=== PATIENT | male | born 1945 | race Caucasian/White ===

== ENCOUNTER 2024-09-13 09:29 | Outpatient (REF) | payer SELFPAY ==
[2024-09-13 10:51] LABS: MANUAL DIFF FLAG NO
[2024-09-13 11:01] LABS: Basophils Percent Auto 0.4 % (0-2); Eosinophils Absolute Auto 0.1 X10*3/uL (0.0-0.4); Eosinophils Percent Auto 1.2 % (0-4); Hematocrit 44.4 % (42.0-52.0); Hemoglobin 14.9 g/dl (14.0-18.0); Imm Gran Abs Auto 0.02 X10*3/uL (0.00-0.03); Imm Gran Pct Auto 0.3 % (0.0-0.4); Lymphocytes Absolute Auto 1.8 X10*3/uL (1.2-4.9); Lymphocytes Percent Auto 24.3 % (20-40); Mean Corpuscular HGB Conc 33.6 g/dl (31.0-36.0); Mean Corpuscular Volume 92.5 fL (80.0-98.0); Mean Platelet Volume 9.4 fL (9.4-12.4); Monocytes Absolute Auto 0.6 X10*3/uL (0.1-1.2); Monocytes Percent Auto 8.3 % (2-11); Neutrophils Absolute Auto 4.8 x10*3/uL (2.0-8.3); Neutrophils Percent Auto 65.5 % (45-73); Platelet Count 277 X10*3/uL (160-400); Red Cell Distribution Width 11.9 % (11.0-16.0); White Blood Count 7.3 X10*3/uL (4.8-10.8)
[2024-09-13 11:12] LABS: Alanine Aminotransferase 30 U/L (0-40); Albumin Level 4.2 g/dL (3.5-5.0); Alkaline Phosphatase 88 U/L (39-117); Aspartate Amino Transferase 20 U/L (5-37); Bilirubin Direct 0.1 mg/dL (0.0-0.5); Bilirubin Total 0.4 mg/dL (0.0-1.0); Blood Urea Nitrogen 32 mg/dL (9-16); Estimated Glomerular Filt Rate 48; Lipase 28 U/L (8-78); Total Protein 6.9 g/dL (6.5-8.0)
--- OUTSIDE RECORDS SUMMARY | 2024-09-19 17:11 | XMS_ITS | Continuity of Care Document ---
Author Organization [facility] Address [address] [place] [address]- Support Name Relationship Address Phone SABAS, RAHEEM Personal Relationship Unknown Unava ilable SABAS, MAURI child Unknown Unavailable SABAS, JIMMIE Personal Relationship Unknown Unavai lable SABAS, JIMMIE Personal Relationship Unknown Unavai lable SAABS, RAHEEM Personal Relationship Unknown Unava ilable SABAS, JIMMIE Personal Relationship Unknown Unavai lable SABAS, RAHEEM Personal Relationship Unknown Unava ilable SABAS, JIMMIE Personal Relationship Unknown Unavai lable SABAS, JIMMIE spouse Unknown Unavailable SABAS, RAHEEM Personal Relationship Unknown Unava ilable SABAS, JIMMIE Personal Relationship Unknown Unavai lable SABAS, RAHEEM Personal Relationship Unknown Unava ilable SABAS, RAHEEM Personal Relationship Unknown Unava ilable SABAS, RAHEEM Personal Relationship Unknown Unava ilable SABAS, JIMMIE Personal Relationship Unknown Unavai lable SABAS, RAHEEM Personal Relationship Unknown Unava ilable SABAS, RAHEEM Personal Relationship Unknown Unava ilable SABAS, JIMMIE Personal Relationship Unknown Unavai lable SABAS, RAHEEM Personal Relationship Unknown Unava ilable Care Team Providers Care Learning Officer Name Role Phone Dc Viramontes DO Primary Care Physician [place] [facility] [place] 09/17/24 [facility] [address] [place] [id number] Attending Physician: Traci Barrios MD Admitting Physician: Traci Barrios MD Referring Physician: Dc Viramontes DO Encounter Type: Pre-OutPatient One Time Allergies, Adverse Reactions, Alerts No Known Allergies Immunizations Given and Recorded Vaccine Date Status Refusal Reason influenza virus vaccine, inactivated 08/24/22 Jordin rded SARS-CoV-2 mRNA ([id number]) vax 02/05/22 Recorded SARS-CoV-2 (COVID-19) mRNA BNT-162b2 vac 09/11/21 Recorded SARS-CoV-2 (COVID-19) mRNA BNT-162b2 vac 12/31/20 Recorded tetanus-diphtheria toxoids (Td) 12/15/99 Given Medications amLODIPine 5 mg oral tablet 5 mg, 1, tablet, By Mouth, Daily, # 90 tablet, Refills 0, Maintenance, 02/10/23 9:45:00 PM EDT, Partial fill upon patient request if the prescription is for a schedule II opioid drug. Start Date: 02/10/23 Status: Ordered Quantity: 90.0 Unit: tablet Repeat number: 1 arformoterol 15 mcg/2 mL inhalation solution 1 each, Neb, 2 times a day, ICD10: J45.90, # 360 mL, 3 Refills, Maintenance, 02/02/24 12:36:00 PM EDT, Solution, [facility], Partial fill upon patient request if the prescription is for a schedule II opioid drug., 1 each Neb 2 times a day,Instr:ICD10: J45.90, 168, cm, 12/03/23 8:25:00 EST, Height, 75.3, kg, 11/21/23 3:17:00 EST, Dry Weight Start Date: 02/02/24 Status: Ordered Quantity: 360.0 Unit: mL Repeat number: 4 atorvastatin 10 mg oral tablet 1 tablet = 10 mg, By Mouth, Daily, # 90 tablet, 0 Refills, Maintenance, 02/10/23 9:27:00 PM EDT, Partial fill upon patient request if the prescription is for a schedule II opioid drug. Start Date: 02/10/23 Status: Ordered Quantity: 90.0 Unit: tablet Repeat number: 1 budesonide 0.5 mg/2 mL inhalation suspension 0.5 mg, 2, mL, Neb, 2 times a day, ICD10: J45.40, # 360 mL, Refills 3, Tot. Refills 3, Maintenance,02/02/24 12:35:00 PM EDT, Suspension, Route to Pharmacy Electronically, NCPDP_[id number], [facility], 168, cm, 12/03/23 8:25:00 EST, Height, 75.3, kg, 11/21/23 3:17:00 EST, Dry Weight Start Date: 02/02/24 Status: Ordered Quantity: 360.0 Unit: mL Repeat number: 4 carvedilol 3.125 mg oral tablet 3.125 mg, 1, tablet, By Mouth, 2 times a day, Refills 0, Maintenance, 08/28/24 8:59:00 AM EST, Partial fill upon patient request if the prescription is for a schedule II opioid drug. Start Date: 08/28/24 Status: Ordered Repeat number: 1 Entresto 97 mg-103 mg oral tablet 1 tablet, By Mouth, 2 times a day, 0 Refills, Maintenance, 08/28/24 8:59:00 AM EST, Partial fill upon patient request if the prescription is for a schedule II opioid drug. Start Date: 08/28/24 Status: Ordered Repeat number: 1 Farxiga 10 mg oral tablet 1 tablet = 10 mg, By Mouth, Daily, 0 Refills, Maintenance, 08/28/24 9:00:00 AM EST, Partial fill upon patient request if the prescription is for a schedule II opioid drug. Start Date: 08/28/24 Status: Ordered Repeat number: 1 Flonase Allergy Relief 50 mcg/inh nasal spray 2 sprays = 100 mcg, Nares, Both, 2 times a day, PRN Cough and Congestion, # 16 Gm, 11 Refills, Maintenance, 12/03/23 8:57:00 AM EST, [facility]/pharmacy #[id number], Partial fill upon patient request if the prescription is for a schedule II opioid drug., 168, cm, 12/03/23 8:25:00 EST, Height, 75.3, kg, 11/21/23 3:17:00 EST, Dry Weight Start Date: 12/03/23 Status: Ordered Quantity: 16.0 Unit: g Repeat number: 12 Hydrochlorothiazide By Mouth, Daily, 0 Refills, Maintenance, 12/03/23 8:32:00 AM EST, Partial fill upon patient request if the prescription is for a schedule II opioid drug. Start Date: 12/03/23 Status: Ordered Repeat number: 1 hydrochlorothiazide-lisinopril 12.5 mg-20 mg oral tablet 1 tablet, By Mouth, Daily, # 90 tablet, 0 Refills, Maintenance, 02/10/23 9:42:00 PM EDT, Tablet, Partial fill upon patient request if the prescription is for a schedule II opioid drug. Start Date: 02/10/23 Status: Ordered Quantity: 90.0 Unit: tablet Repeat number: 1 loratadine 10 mg oral tablet 10 mg, 1, tablet, By Mouth, Daily, # 30 tablet, Refills 11, Tot. Refills 11, Maintenance, 12/03/23 8:57:00 AM EST, Route to Pharmacy Electronically, [facility]/pharmacy #[id number], Partial fill upon patient request if the prescription is for a schedule II opioid drug., 168, cm, 12/03/23 8:25:00 EST, Height, 75.3, kg, 11/21/23 3:17:00 EST, Dry Weight Start Date: 12/03/23 Status: Ordered Quantity: 30.0 Unit: tablet Repeat number: 12 Nebulizer/Compressor See Instructions, # 1 each, Refills 11, Tot. Refills 11, Maintenance, E0570 Nebulizer A7003 Neb Disp Set A7014 Neb non-Disp Filter A7005 Neb Non-Disp set A7015 Aerosol Mask A7013 Neb Disp Filter length of need lifetime 99 months for home use, 12/17/23 1:12:00 PM EST, Supply Start Date: 12/17/23 Status: Ordered Quantity: 1.0 Unit: each Repeat number: 12 omeprazole 20 mg oral delayed release tablet 1 tablet = 20 mg, By Mouth, Daily, # 90 tablet, 0 Refills, Maintenance, 02/10/23 9:46:00 PM EDT, CR Tablet, Partial fill upon patient request if the prescription is for a schedule II opioid drug. Start Date: 02/10/23 Status: Ordered Quantity: 90.0 Unit: tablet Repeat number: 1 [place] = 450 mg, By Mouth, 0 Refills, Maintenance, 08/28/24 9:02:00 AM EST, Partial fill upon patient request if the prescription is for a schedule II opioid drug. Start Date: 08/28/24 Status: Ordered Repeat number: 1 tamsulosin 0.4 mg oral capsule Refills 0, Maintenance, 02/10/23 9:27:00 PM EDT, Partial fill upon patient request if the prescription is for a schedule II opioid drug. Start Date: 02/10/23 Status: Ordered Repeat number: 1 traZODone 50 mg oral tablet 25 mg, 0.5, tablet, By Mouth, Daily at bedtime, Can increase to 1 tablet after 3 days if needed, # 15 tablet, Refills 3, Maintenance, 02/10/23 9:27:00 PM EDT, Partial fill upon patient request if the prescription is for a schedule II opioid drug. Start Date: 02/10/23 Status: Ordered Quantity: 15.0 Unit: tablet Repeat number: 1 zafirlukast 20 mg oral tablet 1 tablet = 20 mg, By Mouth, 2 times a day, 1 hour before or 2 hours after meals, # 60 tablet, 11 Refills, Maintenance, 12/31/23 4:44:00 PM EDT, Tablet, [facility]/pharmacy #[id number], Partial fill upon patient request if the prescription is for a schedule II opioid drug., 168, cm, 12/03/23 8:25:00 EST, Height, 75.3, kg, 11/21/23 3:17:00 EST, Dry Weight Start Date: 12/31/23 Status: Ordered Quantity: 60.0 Unit: tablet Repeat number: 12 Problem List Condition Confirmation Course Effective Dates Status Health Status Informant Hypercholesterolemia Confirmed Active Syncope Confirmed Active URI (upper respiratory infection) Confirmed Active Social History Social History Type Response Smoking Status Never smoker entered on: 12/21/14 Sex Sex Representation Male (finding) Patient Care team information Care Team Personnel Name: Dc Viramontes DO Position: S Outreach Member Role: PCP Address: [address] [place], [place] [id number] [address] Telecom: Care Team Related Persons Name: MAURI OBREGON Name: JIMMIE OBREGON Insurance Providers Guarantor name: RAHEEM OBREGON Health Plan Information #: 2 Payer: MEDEX Member Number: [id number] Policy Number: NA Group Number: NA Health Plan Information #: 1 Payer: MEDICARE PART B OUTPT Member Number: [id number] Policy Number: NA Group Number: NA
--- OUTSIDE RECORDS SUMMARY | 2024-09-19 17:11 | XMS_ITS ---
Author Organization [facility] Address [address] [place] [address] Care Team Providers Care Co Founder And Cto Name Role Phone Wander MIRAMONTES, Dc Primary Care Provider Juan C Dexter Jr, Tom Sethi REASON FOR VISIT appt Encounters Encounter Location Date Provider Diagnosis [facility] [address] [place] [address] 09/11/2024 Tom Dexter Jr PLAN OF TREATMENT Next Appt Details Provider Name:Tom toledo Jr, 12/27/2024 11:00:00 AM, [address], [address], [place], [address],
--- OUTSIDE RECORDS SUMMARY | 2024-09-19 17:11 | XMS_ITS ---
Author Organization [facility] Address [address] [place] [address] Care Team Providers Care Home Office Representative Name Role Phone Wander MIRAMONTES, Dc Primary Care Provider Juan C Dexter Jr, Tom Sethi REASON FOR VISIT labs Encounters Encounter Location Date Provider Diagnosis [facility] [address] [place] [address] 09/14/2024 Tom Dexter Jr PLAN OF TREATMENT Next Appt Details Provider Name:Tom toledo Jr, 12/27/2024 11:00:00 AM, [address], [address], [place], [address],
--- OUTSIDE RECORDS SUMMARY | 2024-09-19 17:11 | XMS_ITS | Continuity of Care Document ---
Author Organization [facility] ter Address [address] [place] [address]- Support Name Relationship Address Phone SABAS, RAHEEM [...] Unknown Unava ilable Care Team Providers Care Lean Manufacturing Coordinator Name Role Phone Dc Viramontes DO Primary Care Physician Encounter 08/29/24 - 08/30/[address] [address] Attending Physician: Not on Staff, Attending MD Referring Physician: Not on Staff, Referring MD Encounter Type: [facility] Allergies, Adverse Reactions, Alerts No Known Allergies Immunizations Given and Recorded Vaccine Date Status Refusal Reason influenza virus vaccine, inactivated 08/24/22 Jordin rded SARS-CoV-2 mRNA ([id number]) vax 02/05/22 Recorded SARS-CoV-2 (COVID-19) mRNA BNT-162b2 [...] Refills, Maintenance, 02/02/24 12:36:00 PM EDT, Solution, [facility], Partial fill upon patient request if [...] PM EDT, Suspension, Route to Pharmacy Electronically, NCPDP_[id number], [facility], 168, cm, 12/03/23 8:25:00 EST, Height, [...] 11 Refills, Maintenance, 12/03/23 8:57:00 AM EST, [facility]/pharmacy #[id number], Partial fill upon patient request if [...] Quantity: 90.0 Unit: tablet Repeat number: 1 ipratropium nasal 21 mcg/inh spray 2 sprays = 42 mcg, Nares, Both, 2 times a day, PRN Nasal Congestion, # 30 mL, 11 Refills, Acute 09/03/24 10:45:00 AM EST, 08/28/24 9:32:00 AM EST, [place], Partial fill upon patient request if the prescription is for a schedule II opioid drug., 2 sprays Nares, Both 2 times a day,PRN:Nasal Congestion, 168, cm, 08/28/24 8:54:00 EST, Height, 75.3, kg, 11/21/23 3:17:00 EST,Dry Weight Start Date: 08/28/24 Stop Date: 09/03/24 Status: Ordered Quantity: 30.0 Unit: mL Repeat number: 12 loratadine 10 mg oral tablet 10 mg, 1, tablet, By Mouth, Daily, # 30 tablet, Refills 11, Tot. Refills 11, Maintenance, 12/03/23 8:57:00 AM EST, Route to Pharmacy Electronically, [facility]/pharmacy #[id number], Partial fill upon patient request if [...] Quantity: 90.0 Unit: tablet Repeat number: 1 Amos Jonesetto = 450 mg, By Mouth, 0 Refills, [...] Refills, Maintenance, 12/31/23 4:44:00 PM EDT, Tablet, [facility]/pharmacy #[id number], Partial fill upon patient request if [...] Position: S Outreach Member Role: PCP Address: [address] [place], [place] [address] [place] [address]- Telecom: Care Team Related Persons Name: MAURI OBREGON Name: JIMMIE OBREGON Insurance Providers Guarantor name: RAHEEM OBREGON Health Plan Information #: 1 Payer: MEDICARE PART B OUTPT Member Number: NA Policy Number: NA Group Number: NA Health Plan Information #: 2 Payer: MEDEX Member Number: NA Policy Number: NA Group Number: NA
--- OUTSIDE RECORDS SUMMARY | 2024-09-19 17:11 | XMS_ITS | Patient Health Record ---
Author Organization [facility] Address [address] [place] [address] Care Team Providers Care Veterinarian Laboratory Animal Care Name Role Phone Dc Viramontes MD Primary Care Provider Tom Robles Jr Unavailable ALLERGIES No Known Allergies RESULTS Component Value Reference Range Notes Complete Blood Count Auto Di ff Reviewed date:09/14/2024 09:25:25 AM Interpretation: Performing Lab:[facility], [address] [place] [phone] Notes/Report: White Blood Count 7.3 4.8-10.8 X10*3/uL Red Blood Count 4.80 4.60-5.80 X10*6/uL Hemoglobin 14.9 14.0-18.0 g/dl Hematocrit 44.4 42.0-52.0 % Mean Corpuscular Volume 92.5 80.0-98.0 fL Mean Corpuscular Hemoglobin 31.0 27.0-33.0 pg Mean Corpuscular HGB Conc 33.6 31.0-36.0 g/dl Red Cell Distribution Width 11.9 11.0-16.0 % Platelet Count 277 160-400 X10*3/uL Mean Platelet Volume 9.4 9.4-12.4 fL Neutrophils Percent Auto 65.5 45-73 % Imm Gran Pct Auto 0.3 0.0-0.4 % Lymphocytes Percent Auto 24.3 20-40 % Monocytes Percent Auto 8.3 2-11 % Eosinophils Percent Auto 1.2 0-4 % Basophils Percent Auto 0.4 0-2 % NRBC Pct Auto 0.0 0.0-0.2 /100WBC Neutrophils Absolute Auto 4.8 2.0-8.3 x10*3/u L Imm Gran Abs Auto 0.02 0.00-0.03 X10*3/uL Lymphocytes Absolute Auto 1.8 1.2-4.9 X10*3/u L Monocytes Absolute Auto 0.6 0.1-1.2 X10*3/uL Eosinophils Absolute Auto 0.1 0.0-0.4 X10*3/u L Basophils Absolute Auto 0.0 0.0-0.2 X10*3/uL NRBC Abs Auto 0.000 0.0-0.012 X10*3/uL Liver Panel Reviewed date:09/14/2024 09:24:27 AM Interpretation: Performing Lab:[address] [phone] Notes/Report: Bilirubin Total 0.4 0.0-1.0 mg/dL Bilirubin Direct 0.1 0.0-0.5 mg/dL Aspartate Amino Transferase 20 5-37 U/L Alanine Aminotransferase 30 0-40 U/L Total Protein 6.9 6.5-8.0 g/dL Albumin Level 4.2 3.5-5.0 g/dL Alkaline Phosphatase 88 39-117 U/L Blood Urea Nitrogen Reviewed date:09/14/2024 09:24:50 AM Interpretation: Performing Lab:[address] [phone] Notes/Report: Blood Urea Nitrogen 32 9-16 mg/dL Creatinine Reviewed date:09/14/2024 09:24:40 AM Interpretation: Performing Lab:[address] [phone] Notes/Report: Creatinine 1.42 0.5-1.4 mg/dL Estimated Glomerular Filt Rate 48 Chronic Kidney Disease: Estimated GFR < 60 mL/min/1.73m2 Severe Kidney Disease: Estimated GFR < 15 mL/min/1.73m2 Lipase Reviewed date:09/14/2024 09:24:33 AM Interpretation: Performing Lab:[address] [phone] Notes/Report: Lipase 28 8-78 U/L REASON FOR REFERRAL No Information MEDICATIONS Medication SIG (Take, Route, Frequency, Duration) Notes Start Date End Date Status Atorvastatin Calcium 20 MG 1 tablet Oral ly Once a day Active Tamsulosin HCl 0.4 MG Oral for 90 Active Ondansetron HCl 8 MG Oral for 5 Active Sertraline HCl 50 MG Oral for 90 Active Farxiga 5 MG 1 tablet Orally Once a day for 30 day(s) 12/27/2023 Active Omeprazole 40 MG 1 capsule 30 minutes before morning meal Orally Once a day 01/07/2024 Active Montelukast Sodium 10 MG Oral for 90 Active Finasteride 5 MG TAKE 1 TABLET BY JAMEL TH EVERY DAY Oral for 90 Active Triamcinolone Acetonide 0.1 % External for 20 Active IMMUNIZATIONS Vaccine Route Administration Date Status Comme nts Influenza Unknown 07/17/2020 Administered Influenza Unknown 09/03/2021 Administered Influenza Unknown 08/03/2023 Administered Influenza Unknown 08/28/2024 Administered SOCIAL HISTORY Tobacco Use: Social History Observation Description Date Details (start date - stop date) Never Smoker NA - NA Sex Assigned At : Social History Observation Description Sex Assigned At Unknown Tobacco Use/Smoking Question Answer Notes Patient is a nonsmoker Alcohol Screen Question Answer Notes Did you have a drink contain ing alcohol in the past year? Yes How often did you have a dri nk containing alcohol in the past year? 2 to 3 times a week (3 points) How often did you have 6 or more drinks on one occasion in the past year? Never (0 point) Points 3 Interpretation Negative PROBLEMS Problem Type ICD Code Onset Dates Problem Status W/U Status Risk SNOMED Code Notes Problem Abdominal bloating (R14.0) Active confirmed 097909279 Problem Generalized abdominal pain (R10.84) Active confirmed 742054528 Problem Gastroesophageal reflux disease without esophagitis (K21.9) Active confirmed 890182806 Problem Constipation, unspecified constipation type (K59.00) Active confirmed 07171553 VITAL SIGNS Temperature 97.5 degrees Fahrenheit 09/13/2024 Blood pressure diastolic 00 mm Hg 09/13/2024 Height 66 in 09/13/2024 Blood pressure systolic 000 mm Hg 09/13/2024 Weight 158 lb 6 oz lbs 09/13/2024 BMI 25.56 kg/m2 09/13/2024 Encounters Encounter Location Date Provider Diagnosis [facility] [address] [place] [address] 12/27/2023 Tom Dexter Jr Gastro-esophageal reflux disease without esophagitis K21.9 and Constipation, unspecified constipation type K59.00 [facility] [address] [facility] [place] [address] 09/13/2024 Tom Dexter Jr Generalized abdominal pain R10.84 ; Abdominal bloating R14.0 and Gastroesophageal reflux disease without esophagitis K21.9 [facility] [address] [place] [address] [place] [address] 10/07/2023 Tom Dexter Jr [facility] [address] [place] [phone] 10/22/2023 Tom Dexter Jr [facility] [address] [place] [phone] 11/19/2023 Tom Dexter Jr [facility] [address] [place] [address] 12/08/2023 Tom Dexter Jr [facility] [address] [place] [phone] 01/07/2024 Tom Dexter Jr [facility] [address] [place] [phone] 01/20/2024 Tom Dexter Jr [facility] [address] [place] [phone] 07/31/2024 Tom Dexter Jr [facility] [address] [place] [phone] 09/11/2024 Tom Dexter Jr [facility] [address] [place] [phone] 09/14/2024 Tom Dexter Jr ASSESSMENTS Encounter Date Diagnosis Assessment Notes Treatment Notes Treatment Clinical Notes 12/27/2023 Gastro-esophageal reflux disease without esophagitis (ICD-10 - K21.9) Healthy food trends -- flaxseeds material was printed 12/27/2023 Constipation, unspecified constipation type (ICD-10 - K59.00) 09/13/2024 Abdominal bloating (ICD-10 - R14.0) 09/13/2024 Generalized abdomina l pain (ICD-10 - R10.84) 09/13/2024 Gastroesophageal ref lux disease without esophagitis (ICD-10 - K21.9) PLAN OF TREATMENT Pending Test Test Name Order Date BUN 09/13/2024 CREATININE 09/13/2024 LIVER PROFILE 09/13/2024 LIPASE 09/13/2024 CBC w/o DIFF 09/13/2024 CT ABD & PELVIS WITH CONTRAST 09/13/2024 Next Appt Details Provider Name:Tom toledo Jr, 12/27/2024 11:00:00 AM, [address], [address], [place], [address], Insurance Providers Payer Name Payer Address Payer Phone Subscriber Number Group Number Insured Name Patient Relationship to Insured Coverage Start Date Coverage End Date MEDICARE OF [place] [address] [place] [address] [id number] RAHEEM OBREGON Self - patient is the insured MED[employer] ATTN CLAIMS [address] [place] [address] [phone] [id number] RAHEEM OBREGON Self - patient is the insured MEDICAL (GENERAL) HISTORY Medical History History ICD Code hypertension hyperlipidemia heart murmur sarcoidosis, 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 pylori, treated, no Velasquez's esophagus Surgical History Surgery Date(Month/Year) hernia repair colonoscopy 11/30, tubular adenomas x2, f carmel-year followup
--- OUTSIDE RECORDS SUMMARY | 2024-09-19 17:11 | XMS_ITS | Continuity of Care Document ---
Author Organization [facility] Address [address] [facility] [place] [address]- Support Name Relationship Address Phone SABAS, RAHEEM [...] Unknown Unava ilable Care Team Providers Care Business Consultant Name Role Phone Dc Viramontes DO Primary Care Physician Encounter 08/24/24 - 08/31/24 [facility] [address] [facility], [address] [place] [address]- Attending Physician: Jayson Rollins MD Admitting Physician: Jayson Rollins MD Referring Physician: Jayson Rollins MD Encounter Type: OutPatient One Time Allergies, Adverse Reactions, Alerts No Known Allergies Immunizations Given and Recorded Vaccine Date Status Refusal Reason influenza virus vaccine, inactivated 08/24/22 Jordin rded SARS-CoV-2 mRNA ([id number]) vax 02/05/22 Recorded SARS-CoV-2 (COVID-19) mRNA BNT-162b2 [...] Refills, Maintenance, 02/02/24 12:36:00 PM EDT, Solution, [facility], Partial fill upon patient [...] PM EDT, Suspension, Route to Pharmacy Electronically, [id number]_[id number], [facility], 168, cm, 12/03/23 8:25:00 [...] 11 Refills, Maintenance, 12/03/23 8:57:00 AM EST, [facility]/pharmacy #[id number], Partial fill upon patient request if [...] 10:45:00 AM EST, 08/28/24 9:32:00 AM EST, [place], [facility], Partial fill upon patient [...] 8:57:00 AM EST, Route to Pharmacy Electronically, [facility]/pharmacy #[id number], Partial fill upon patient request if the [...] 90.0 Unit: tablet Repeat number: 1 Amos Pizarro = 450 mg, By Mouth, 0 Refills, [...] Refills, Maintenance, 12/31/23 4:44:00 PM EDT, Tablet, [facility]/pharmacy #[id number], Partial fill upon patient request if [...] Active URI (upper respiratory infection) Confirmed Active Results Radiology Reports * Exam Date Time Procedure Performing Provider Status 08/24/24 11:14 AM US Renal Bladder Donovan Mayer; Modified Notes: (US Renal Bladder) Reason For Exam: cyst of kidney acquired RESULT: US Renal Bladder US Renal Bladder Reason: cyst of kidney acquired COMPARISON: 08/18/2023 FINDINGS: Right kidney: 10.6 cm in length. No hydronephrosis. Normal parenchymal thickness and echotexture. No stones. No suspicious mass. Few simple cysts, largest measuring 1.8 cm in the upper pole. Left kidney: 10.2 cm in length. No hydronephrosis. Normal parenchymal thickness and echotexture. Nostones. No suspicious mass. Few simple cysts, largest measuring 1.1 cm in the lower pole. Urinary bladder: Normal morphology. No stone, mass, wall thickening or debris. Bilateral ureteral jets are identified on color Doppler imaging suggesting ureterovesicular junction patency. Prevoid volume: 582 cc. Postvoid volume: 33 cc. Prostate volume, 24 cc, within normal limits IMPRESSION: Few bilateral renal cortical cysts, measuring up to 1.8 cm on the right and up to 1.1 cm on the left. No renal lithiasis or hydronephrosis. WSN: [id number] Ordering Physician: Jayson Rollins Dictated By: Joseline Rosa MD Dictated Date/Time: 08/24/24 2:13 pm Reviewed By: Joseline Rosa MD Signed By: Joseline Rosa MD Signed Date/Time: 08/24/24 2:13 pm Transcribed By: URSULA Transcribed Date/Time: 08/24/24 2:00 pm Social History Social History Type Response Smoking Status Never smoker entered on: 12/21/14 Sex Sex Representation Male (finding) Patient Care team information Care Team Personnel Name: Dc Viramontes DO Position: [facility] Outreach Member Role: PCP Address: [address] [place] [address] [address] [place] [address]- Telecom: Name: Jayson Rollins MD Position: [facility] Physician - Urology Med Service: Urology Member Role: Ordering Physician Address: [facility] [address] [facility], [place] [address]- Telecom: Care Team Related Persons Name: MAURI OBREGON Name: JIMMIE OBREGON Insurance Providers Guarantor name: RAHEEMEJ OBREGON Health Plan Information #: 1 Payer: MEDICARE PART B OUTPT Member Number: [id number] Policy Number: NA Group Number: NA Health Plan Information #: 2 Payer: MEDEX Member Number: [id number] Policy Number: NA Group Number: NA
--- OUTSIDE RECORDS SUMMARY | 2024-09-19 17:11 | XMS_ITS | Data Portability ---
Author Organization [place] - [facility], Allergy Address [address] [place] [address] Care Team Providers Care Bradder Name Role Phone RAJBILLYRoselyn LUISANA Primary Care Provider Assessment Encounter Date Assessment Date Assessment LastModified by Organization Details LastModified Time 08/07/2024 08/07/[address] sinus from [facility] imaging shows a septal spur to the left in the mid septum. I do not believe this is causing his main symptoms of throat clearing and mouth breathing at night. Encouraged him to continue use of nasal saline and fluticasone as well as his reflux regimen. Surgery could be performed but it will likely not resolve his specific symptoms [email or web address] Not available 08/07/2024 09:43:34 Plan of Treatment Reminders Order Date Submit Date Provider Last Modified By Organization Details Last Modified Time Details Appointments None record ed. Lab None record ed. Referral None record ed. Procedures None record ed. Surgeries None record ed. Imaging None record ed. Medication Orders None record ed. Patient TargetsNo targets recorded. Patient InstructionsNo instructions recorded. Reason for Referral None Reported. Problems Name Problem SNOMED Code Status Onset Date Resolution Date Notes Provider Name and Address Organization Details Recorded Time Sensorine ural hearing loss of bilateral ears 679427827 Active 2021 Sensorineu ral hearing loss, bilateral; Note: Date Diagnosed: 08/21/2022 4:27 PM (H90.3) Not Available [facility] 4 02:47:31 Generaliz ed enlarged lymph nodes 322771708 Active 2021 Lymphadeno krysten NOS; Note: Date Diagnosed: 08/21/2022 4:27 PM (R59.1) [facility] 4 02:47:35 Gastroeso phageal reflux disease without esophagit is 262017145 Active 2022 Esophageal reflux NOS; Note: Date Diagnosed: 10/07/2023 2:15 PM (K21.9) Not Available [facility] 4 02:47:27 Deviated nasal septum 593120904 Active 2023 MADDISON PALACIOS MD [address] [address], [facility] [place], [address] , [facility] 4 09:42:56 Problem Notes None recorded. Medical Equipment None Reported. Allergies No known drug allergies Medications Name Sig Start Date Stop Date Status Note LastModified by Organization Details LastModified Time trazodone 50 mg tablet TAKE 1/2 TABLET BY MOUTH DAILY AT BEDTIME NEEDED 90 active Not Available Not Available No t Available atorvasta tin 10 mg tablet active Medicati on ID: [id number] B rand Name: atorvast atin Sen d Method: E-Prescr ibed Sub s Allowed: subs OK Medic ationGen ericName : atorvast atin Not Available Not Available Not Available lisinopri l 20 mg-hydroc hlorothia zide 12.5 mg tablet active Medicati on ID: [id number] B rand Name: lisinopr il-hydro chloroth iazide S end Method: E-Prescr ibed Sub s Allowed: subs OK Medic ationGen ericName : lisinopr il-hydro chloroth iazide Not Available Not Available Not Available azithromy karen 250 mg tablet TAKE 1 TABLET BY MOUTH EVERY DAY 08/07 completed Not Available Not Available Not Available hydrochlo rothiazid e 50 mg tablet TAKE 1 TABLET BY MOUTH EVERY DAY active Not Available Not Available No t Available valacyclo vir 1 gram tablet active Medicati on ID: [id number] B rand Name: valacycl ovir Sen d Method: E-Prescr ibed Sub s Allowed: subs OK Medic ationGen ericName : valacycl ovir Not Available Not Available Not Available prednison e 20 mg tablet PLEASE SEE ATTACHED FOR DETAILED DIRECTIO NS 08/07 completed Not Available Not Available Not Available omeprazol e 40 mg capsule,d elayed release active Medicati on ID: [id number] B rand Name: omeprazo le Send Method: E-Prescr ibed Sub s Allowed: subs OK Medic ationGen ericName : omeprazo le Not Available Not Available Not Available triamcino lone acetonide 0.1 % topical cream APPLY TWICE DAILY TO RASH ON TRUNK FOR UP TO 2 WEEKS/MO NTH NEEDED. active Not Available Not Available No t Available carvedilo l 3.125 mg tablet TAKE 1 TABLET BY MOUTH TWICE A DAY WITH FOOD active Not Available Not Available No t Available prednisol one acetate 1 % eye drops,guillermo pension INSTILL 1 DROP INTO BOTH EYES TWICE A DAY 08/07 completed Not Available Not Available Not Available tamsulosi n 0.4 mg capsule TAKE 1 CAPSULE BY MOUTH AT BEDTIME active Not Available Not Available No t Available benzonata te 100 mg capsule TAKE 1 CAPSULE BY MOUTH 3 TIMES A DAY FOR 7 DAYS 08/07 completed Not Available Not Available Not Available zafirluka st 20 mg tablet TAKE 1 TABLET BY MOUTH 2 TIMES A DAY,INST R:1 HOUR BEFORE OR 2 HOURS AFTER MEALS active Not Available Not Available No t Available omeprazol e 20 mg capsule,d elayed release 08/07 completed Medicati on ID: [id number] B rand Name: omemaximzo mehreen Send Method: E-Prescr ibed Sub s Allowed: subs OK Medic ationGen ericName : omeprazo le Not Available Not Available Not Available budesonid e 0.5 mg/2 mL suspensio n for nebulizat ion active Not Available Not Available Not Available monteluka st 10 mg tablet TAKE 1 TABLET BY MOUTH EVERY DAY BEFORE DINNER active Not Available Not Available No t Available hydroxyzi ne HCl 25 mg tablet TAKE 1 TABLET BY MOUTH EVERY DAY AT BEDTIME FOR 30 DAYS 08/07 completed Not Available Not Available Not Available metoprolo l succinate ER 25 mg tablet,ex tended release 24 hr TAKE 0.5 TAB ORALLY ONCE A DAY 90 DAYS active Not Available Not Available No t Available losartan 50 mg-hydroc hlorothia zide 12.5 mg tablet TAKE 1 TABLET BY MOUTH EVERY DAY FOR 30 DAYS 08/07 completed Not Available Not Available Not Available ketoconaz ole 2 % topical cream APPLY TOPICALL Y TO NOSE NEEDED TWICE A DAY. active Not Available Not Available No t Available fluticaso ne propionat e 50 mcg/actua tion nasal spray,guillermo pension SPRAY 2 SPRAYS INTO EACH NOSTRIL ONCE A DAY 30 active Not Available Not Available No t Available ipratropi um bromide 21 mcg (0.03 %) nasal spray SPRAY 2 SPRAYS BOTH 2 TIMES A DAY NEEDED NASAL CONGESTI ON active Not Available Not Available No t Available amoxicill in 875 mg-potass ium clavulana te 125 mg tablet TAKE 1 TABLET BY MOUTH EVERY 12 HOURS FOR 5 DAYS 08/07 completed Not Available Not Available Not Available ciclopiro x 0.77 % topical cream active Medicati on ID: [id number] B rand Name: ciclopir ox Send Method: E-Prescr ibed Sub s Allowed: subs OK Medic ationGen ericName : ciclopir ox Not Available Not Available Not Available arformote rol 15 mcg/2 mL solution for nebulizat ion active Not Available Not Available Not Available Farxiga 10 mg tablet TAKE 1 TABLET (10 MG TOTAL) BY MOUTH EVERY MORNING. active Not Available Not Available No t Available Entresto 49 mg-51 mg tablet active Not Available Not Available No t Available Vitals Date Recorded Body height Body mass index (BMI) Body weight Provider Name and Address Organization Details Last Updated DateTime 08/07/2024 167.64 cm 27.8 kg/m2 92136.89 g Irene Bustillo [place] - [facility] 08/07/2024 09:30:33 Social History None recorded. Functional Status None recorded. Mental Status None recorded. Family History Nothing Reported. Medical History No medical history recorded. Past Encounters Encounter ID Performer Location Encounter Start Date Encounter Closed Date Diagnosis/Indication Diagnosis SNOMED-CT Code Diagnosis ICD10 Code [id number] MADDISON PALACIOS MD [facility] [address] [address] 08/07/2024 09:16:04 08/07/2024 09:43:29 Deviated nasal septum 676839010 J34.2 Health Concerns Section Related Observation LastModified by Organization Detai ls LastModified Time None Recorded Concern Status LastModified by Organization Details LastModified Time None Recorded Advance Directives Directive None Recorded Payers Encounter Date Sequence Insurance Name Policy Number Policy Siddiqi Covered Member ID Siddiqi Member ID Guarantor Name 08/07/2024 2 [place] [id number] Pal Langford Jose G [id number] Pal H Jose G 08/07/2024 1 [place] Pal H Jose G [id number] Pal H Jose G Notes Date Note Type Note Provider Name and Address Organization Details Recorded Time 08/07/2024 text/html deviated septumf eels good airflow through nose but is 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
--- OUTSIDE RECORDS SUMMARY | 2024-09-19 17:11 | XMS_ITS ---
Author Organization [facility] Address [address] [place] [address] Care Team Providers Care Mailer Name Role Phone Wander MIRAMONTES, Dc Primary Care Provider Tom Robles Jr Unavailable ALLERGIES No Known Allergies REASON FOR VISIT Patient presents today for abdominal bloating, gas MEDICATIONS Medication SIG (Take, Route, Frequency, Duration) Notes Start Date End Date Status Sertraline HCl 50 MG Oral for 90 Active Farxiga 5 MG 1 tablet Orally Once a day for 30 day(s) 12/27/2023 Active Montelukast Sodium 10 MG Oral for 90 Active Finasteride 5 MG TAKE 1 TABLET BY JAMEL TH EVERY DAY Oral for 90 Active Triamcinolone Acetonide 0.1 % External for 20 Active Atorvastatin Calcium 20 MG 1 tablet Oral ly Once a day Active Tamsulosin HCl 0.4 MG Oral for 90 Active Ondansetron HCl 8 MG Oral for 5 Active Omeprazole 40 MG 1 capsule 30 minutes before morning meal Orally Once a day 01/07/2024 Active SOCIAL HISTORY Tobacco Use: Social History Observation [...] W/U Status Risk SNOMED Code Notes Problem Generalized abdominal pain (R10.84) Active confirmed 127133191 Problem Gastroesophageal reflux disease without esophagitis (K21.9) Active confirmed 024839927 VITAL SIGNS BMI 25.56 kg/m2 09/13/2024 Blood pressure systolic 000 mm Hg 09/13/20 24 Blood pressure diastolic 00 mm Hg 024 Height 66 in 09/13/2024 Temperature 97.5 degrees Fahrenheit 09/13/20 24 Weight 158 lb 6 oz lbs 09/13/2024 Encounters Encounter Location Date Provider Diagnosis [facility] [address] [place] [address] 09/13/2024 Tom Dexter Jr Generalized abdominal pain R10.84 ; Abdominal bloating R14.0 and Gastroesophageal reflux disease without esophagitis K21.9 ASSESSMENTS Encounter Date Diagnosis Assessment Notes Treatment Notes Treatment Clinical Notes 09/13/2024 Generalized abdomina l pain (ICD-10 - R10.84) 09/13/2024 Abdominal bloating (ICD-10 - R14.0) 09/13/2024 Gastroesophageal ref lux disease without esophagitis (ICD-10 - K21.9) PLAN OF TREATMENT Pending Test Test Name Order Date BUN 09/13/2024 CREATININE 09/13/2024 LIVER PROFILE 09/13/2024 LIPASE 09/13/2024 CBC w/o DIFF 09/13/2024 CT ABD & PELVIS WITH CONTRAST 09/13/2024 Next Appt Details Follow Up: 1 Year, Reason: Provider Name:Tom toledo Jr, 12/27/2024 11:00:00 AM, [address], [address], [place], [address],
--- OUTSIDE RECORDS SUMMARY | 2024-09-19 17:12 | XMS_ITS | Continuity of Care Document ---
Author Organization [place] - [facility], [facility] Address [address] [place] [address] Care Team Providers Care Education And Training Coordinator Name Role Phone LUISANA KILLIAN Primary Care Provider Assessment Encounter Date Assessment Date Assessment LastModified by Organization Details LastModified Time 08/07/2024 08/07/[address] sinus from [facility] imaging shows a septal spur to the [...] Sensorine ural hearing loss of bilateral ears 352408606 Active 2021 Sensorineu ral hearing loss, bilateral; Note: Date Diagnosed: 08/21/2022 4:27 PM (H90.3) Not Available [facility] 4 02:47:31 Generaliz ed enlarged lymph nodes 009940357 Active 2021 Lymphadeno krysten NOS; Note: Date Diagnosed: 08/21/2022 4:27 PM (R59.1) Not Available [facility] 4 02:47:35 Gastroeso phageal reflux disease without esophagit is 819086917 Active 2022 Esophageal reflux NOS; Note: Date Diagnosed: 10/07/2023 2:15 PM (K21.9) Not Available [facility] 4 02:47:27 Deviated nasal septum 324212392 Active 2023 MADDISON PALACIOS MD [address] [facility] [address], [facility] [place], [address] , [facility] 4 09:42:56 Problem Notes None recorded. Medical Equipment None Reported. Allergies No known drug allergies Medications Name Sig Start Date Stop Date Status Note LastModified by Organization Details LastModified Time trazodone 50 mg tablet TAKE 1/2 TABLET BY MOUTH DAILY AT BEDTIME NEEDED 90 active Not Available Not Available No t Available atorvasta tin 10 mg tablet active Medicati on ID: [id number] B rand Name: atorvast atin Sen d Method: E-Prescr ibed Sub s Allowed: subs OK Medic ationGen ericName : atorvast atin Not Available Not Available Not Available lisinopri l 20 mg-hydroc hlorothia zide 12.5 mg tablet active Medicati on ID: [id number] B rand Name: lisinopr il-hydro chloroth iazide [...] 1 gram tablet active Medicati on ID: [id number] B rand Name: valacycl ovir Sen d Method: E-Prescr ibed Sub s Allowed: subs OK Medic ationGen ericName : valacycl ovir Not Available Not Available Not Available prednison e 20 mg tablet PLEASE SEE ATTACHED FOR DETAILED DIRECTIO NS 08/07 completed Not Available Not Available Not Available omeprazol e 40 mg capsule,d elayed release active Medicati on ID: [id number] B rand Name: omeleander verde Send Method: E-Prescr ibed Sub s Allowed: subs OK Medic atTarun ericName : omeprazo le Not Available Not [...] elayed release 08/07 completed Medicati on ID: [id number] B rand Name: omeleander verde Send Method: E-Prescr ibed Sub s Allowed: subs OK Medic Jimmy ericName : omeprazo le Not Available Not [...] % topical cream active Medicati on ID: [id number] B rand Name: ciclopir ox Send Method: [...] Updated DateTime 08/07/2024 167.64 cm 27.8 kg/m2 87989.89 g Irene Bustillo [place] - [facility] 08/07/2024 09:30:33 Social History None recorded. Functional Status None recorded. Mental Status None recorded. Family History Nothing Reported. Medical History No medical history recorded. Past Encounters Encounter ID Performer Location Encounter Start Date Encounter Closed Date Diagnosis/Indication Diagnosis SNOMED-CT Code Diagnosis ICD10 Code [id number] MADDISON PALACIOS MD [facility] [address] [address] 08/07/2024 09:16:04 08/07/2024 09:43:29 Deviated nasal septum 348495904 J34.2 Health Concerns Section Related Observation LastModified by Organization Detai ls LastModified Time None Recorded Concern Status LastModified by Organization Details LastModified Time None Recorded Payers Encounter Date Sequence Insurance Name Policy Number Policy Siddiqi Covered Member ID Siddiqi Member ID Guarantor Name 08/07/2024 2 [place] [id number] Pal Aguilaro [id number] Pal H Jose G 08/07/2024 1 [place] Pal H Jose G [id number] Palantoine Araiza Notes Date Note Type Note Provider Name and Address Organization Details Recorded Time 08/07/2024 text/html deviated septumf eels good airflow through nose but is mouth breather at 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
--- OUTSIDE RECORDS SUMMARY | 2024-09-19 17:12 | XMS_ITS ---
Author Name [facility] Organization Unknown Results Test Name/Text Value Interpretation Date Range Source Calcium SerPl-mCnc 9.2mg/dL Normal [id number] 8.6 - 10 .3 [facility] BUN SerPl-mCnc 33mg/dL Above high normal [id number] 7 - 25 [facility] Creat SerPl-mCnc 1.42mg/dL Above high normal [id number] 0. 7 - 1.28 [facility] BUN/Creat SerPl 23(calc) Above high normal [id number] 6 - 22 [facility] Chloride SerPl-sCnc 102mmol/L Normal [id number] 98 - 11 0 [facility] CO2 SerPl-sCnc 29mmol/L Normal [id number] 20 - 32 [facility] EST eGFRcr SerPlBld CKD-EPI 2020 51mL/min/1.73m2 Below low normal [id number] - [facility] Potassium SerPl-sCnc 4.5mmol/L Normal [id number] 3.5 - 5.3 [facility] Glucose SerPl-mCnc 96mg/dL Normal [id number] 65 - 139 [facility] Sodium SerPl-sCnc 137mmol/L Normal [id number] 135 - 146 [facility] POC Glucose 73mg/dL Normal [id number] 65 - 99 [facility] History of Medication Use Medication Directions Dispensed Refills Start Date End Date Status sacubitril-valsartan (ENTRESTO) 97-103 mg per tablet Take 1 tablet by mouth 2 (two) times a day. 4 10/10/99 active spironolactone (ALDACTONE) 25 MG tablet Take 0.5 tablets (12.5 mg total) by mouth daily. 4 10/10/99 99 active gabapentin (NEURONTIN) 300 MG capsule Start 1 capsule daily in evening after meal for 7 days, then increase 1 capsule twice daily 4 10/10/99 99 active fluticasone (FloNASE) 50 mcg/spray nasal spray 1 spray into each nostril daily. 4 10/10/99 99 active OMEprazole 20 MG Tablet Delayed Response Take 20 mg by mouth daily. 4 active sacubitril-valsartan (ENTRESTO) 49-51 mg per tablet Take 1 tablet by mouth 2 (two) times a day. 4 active carvedilol (COREG) 3.125 MG tablet Take 1 tablet (3.125 mg total) by mouth 2 (two) times a day with meals. 4 active sacubitril-valsartan (ENTRESTO) 24-26 mg per tablet Take 1 tablet by mouth 2 (two) times a day. 4 active gadobutrol (GADAVIST) injection 15 mL 15 mL, Intravenous, Once in imaging, contrast, Starting on Wed01/10/24 at 1254, For 1 dose, Radiology Appointment 4 completed dapagliflozin (FARXIGA) 10 MG tablet Take 1 tablet (10 mg total) by mouth every morning. 4 active OMEprazole 20 MG Tablet Delayed Response Take 40 mg by mouth daily. 4 active swmiiovmegdx-ylxf-jnzbup ls-folic acid (CENTRUM) chewable tablet Chew 1 tablet daily. 4 active kxgjwolxshzc-mmxi-itfqwl ls-folic acid (CENTRUM) chewable tablet Chew 1 tablet daily. 4 active amLODIPine (NORVASC) 5 MG tablet Take 1 tablet (5 mg total) by mouth daily. 4 aborted [place] 450 MG Cap Take 450 mg by mouth daily. 4 active tamsulosin (FLOMAX) 0.4 MG capsule Take 1 capsule (0.4 mg total) by mouth. 4 active atorvastatin (LIPITOR) 10 MG tablet Take 1 tablet (10 mg total) by mouth daily. 4 active traZODone (DESYREL) 50 MG tablet Take 0.5 tablets (25 mg total) by mouth. 4 active hydroCHLOROthiazide (HYDRODIURIL) 50 MG tablet Take 1 tablet (50 mg total) by mouth daily. 4 active hydroCHLOROthiazide (HYDRODIURIL) 25 MG tablet Take 1 tablet (25 mg total) by mouth daily. 4 aborted metoPROLOL SUCCINATE (TOPROL-XL) 25 MG 24 hr tablet Take 0.5 tablets (12.5 mg total) by mouth daily. 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
== END 2024-09-13 09:30 | disposition home or self-care (01) ==
LOC: HO.10HDL 09:29
PROVIDERS: Visit Provider Internal Medicine Gastroenterology
DX: R10.84 Generalized abdominal pain (principal)
CPT/HCPCS: 36415; 80076; 82565; 83690; 84520; 85025

== ENCOUNTER 2025-06-19 11:11 | Day surgery (SDC) | payer MEDICARE, SELFPAY ==
--- OUTSIDE RECORDS SUMMARY | 2025-05-24 13:58 | XMS_ITS | Encounter Summary ---
Author Organization [facility] Address [address] [place] [address] Care Team Providers Care Yarn Preparation Supervisor Name Role Phone Dc Viramontes DO Primary Care Provider [phone] Conner Key MD Unavailable [phone] Reason for Visit * Reason Onset Date Comments FA Request 05/21/2025 Encounter Details Date Type Department Care Team (Late st Contact Info) Description 05/21/2025 Telephone [facility] Rheumatology [place] [address] [facility] [address] [place] [phone] Catina Glez MD [address] [facility] [address] [place], [place] [id number] FA Request Social History Tobacco Use Types Packs/Day Years Used Date Smoking Tobacco: Never Passive Smoke Exposure: Never Smokeless Tobacco: Never Alcohol Use Standard Drinks/Week Comments Yes 0 (1 standard drink = 0.6 oz pur e alcohol) Sex and Gender Information Value Date Recorded Sex Assigned at Male 12/07/2023 3:41 PM EST Legal Sex Male 10:19 AM EST Gender Identity Male 12/07/2023 3:41 PM EST Sexual Orientation Heterosexual (straight) 12/07 3:41 PM EST documented as of this encounter Miscellaneous Notes * Telephone Encounter - Yasemin May - 05/22/2025 11:35 AM EDT [facility] approved Medication/Strength: Entresto 24-26 tablet Final Copay/Day Supply: $0.00 Approval Dates: 05/22/2025-04/21/2026 [facility] Balance : $7500 Additional information: Patients New ID # has been added into [id number] ID- [id number] * Telephone Encounter - Jess Smith - 05/21/2025 11:47 AM EDT Called patient at [phone], spoke with BONNY. Notified patient of high copay. Patient stated copay is unaffordable. Patient gave verbal consent for Financial Assistance through Beronica/Foundation Does patient have government funded insurance? (Medicare, Medicaid, , etc) Yes Medication: ENTRESTO Best Contact Number/Time of day: [phone] Email: [email or web address] Diagnosis / ICD-10: I42.0 JOAQUINA (Annual Gross Income): 20,454 HH (Household Size): 2 Additional Information: NONE * Telephone Encounter - Yasemin May - 05/21/2025 7:27 AM EDT Patient previously had active beronica to assist with Entresto copay. Beronica has at this time. Disease state is currently open. Will need updated consent for patient to request additional funds/beronica. Thank you! documented in this encounter Plan of Treatment Upcoming Encounters Date Type Department Care Team (Late st Contact Info) Description 07/30/2025 10:00 AM EDT Office Visit [facility] Heart & Vascular [place] [facility] [address] [facility] [address] [place] [phone] Catina Glez MD [address] [address] documented as of this encounter Visit Diagnoses Not on filedocumented in this encounter Care Teams Yarn Preparation Supervisor Relationship Specialty Start Date End Date Dc Viramontes DO [address] [place] [address] PCP - General Internal Medicine 10/05/23 Conner Key MD [address] [place] [address] Neurology 08/09/24 documented as of this encounter
--- OUTSIDE RECORDS SUMMARY | 2025-05-24 13:58 | XMS_ITS ---
Author Name [facility] Organization Unknown Results Test Name/Text Value Interpretation Date Range Source NT-proBNP SerPl-mCnc 37.0 pg/mL Normal 01/26/2025 - 450 [facility] BUN/Creat SerPl 25.0 (calc) Above high normal 01/26/2025 6 - 22 [facility] BUN SerPl-mCnc 34.0 mg/dL Above high normal 01/26/2025 7 - 2 5 [facility] Creat SerPl-mCnc 1.34 mg/dL Above high normal 01/26/2025 0.7 - 1.28 [facility] Potassium SerPl-sCnc 4.7 mmol/L Normal 01/26/2025 3.5 - 5 .3 [facility] Sodium SerPl-sCnc 135.0 mmol/L Normal 01/26/2025 135 - 14 6 [facility] Chloride SerPl-sCnc 104.0 mmol/L Normal 01/26/2025 98 - 1 10 [facility] Calcium SerPl-mCnc 9.7 mg/dL Normal 01/26/2025 8.6 - 10.3 [facility] CO2 SerPl-sCnc 23.0 mmol/L Normal 01/26/2025 20 - 32 [facility] EST Glucose SerPl-mCnc 100.0 mg/dL Normal 01/26/2025 65 - 139 [facility] eGFRcr SerPlBld CKD-EPI 2020 55.0 mL/min/1.73m2 Below low normal 01/26/2025 - [facility] Sodium SerPl-sCnc 137.0 mmol/L Normal 09/07/2024 135 - 14 6 [facility] Creat SerPl-mCnc 1.42 mg/dL Above high normal 09/07/2024 0.7 - 1.28 [facility] eGFRcr SerPlBld CKD-EPI 2020 51.0 mL/min/1.73m2 Below low normal 09/07/2024 - [facility] Potassium SerPl-sCnc 4.5 mmol/L Normal 09/07/2024 3.5 - 5 .3 [facility] Calcium SerPl-mCnc 9.2 mg/dL Normal 09/07/2024 8.6 - 10.3 [facility] BUN SerPl-mCnc 33.0 mg/dL Above high normal 09/07/2024 7 - 2 5 [facility] Chloride SerPl-sCnc 102.0 mmol/L Normal 09/07/2024 98 - 1 10 [facility] CO2 SerPl-sCnc 29.0 mmol/L Normal 09/07/2024 20 - 32 [facility] Glucose SerPl-mCnc 96.0 mg/dL Normal 09/07/2024 65 - 139 [facility] BUN/Creat SerPl 23.0 (calc) Above high normal 09/07/2024 6 - 22 [facility] POC Glucose 73.0 mg/dL Normal 03/16/2024 65 - 99 [facility] History of Medication Use Medication Directions Dispensed Refills Start Date End Date Status triamcinolone (NASACORT AQ) 55 MCG/ACT Aerosol nasal spray 2 sprays into each nostril daily. 5 active ipratropium (ATROVENT) 0.03 % nasal spray 2 sprays into each nostril 2 (two) times a day. 5 active spironolactone (ALDACTONE) 25 MG tablet Take 1 tablet (25 mg total) by mouth daily. 5 active spironolactone (ALDACTONE) 25 MG tablet Take 0.5 tablets (12.5 mg total) by mouth daily. 4 active gabapentin (NEURONTIN) 300 MG capsule Start 1 capsule daily in evening after meal for 7 days, then increase 1 capsule twice daily 4 08/29/20 24 active carvedilol (COREG) 3.125 MG tablet TAKE 1 TABLET BY MOUTH TWICE A DAY WITH MEALS 4 03/07/20 24 active gadobutrol (GADAVIST) injection 15 mL 15 mL, Intravenous, Once in imaging, contrast, Starting on 01/10/24 at 1254, For 1 dose, Radiology Appointment 4 01/10/20 24 completed dapagliflozin (FARXIGA) 10 MG tablet Take 1 tablet (10 mg total) by mouth every morning. 4 12/30/19 24 active metoPROLOL SUCCINATE (TOPROL-XL) 25 MG 24 hr tablet Take 0.5 tablets (12.5 mg total) by mouth daily. 4 12/09/19 24 aborted atorvastatin (LIPITOR) 10 MG tablet Take 1 tablet (10 mg total) by mouth daily. 4 active traZODone (DESYREL) 50 MG tablet Take 0.5 tablets (25 mg total) by mouth. 3 08/29/20 24 active tamsulosin (FLOMAX) 0.4 MG capsule Take 1 capsule (0.4 mg total) by mouth. 3 active hydroCHLOROthiazide (HYDRODIURIL) 25 MG tablet Take 1 tablet (25 mg total) by mouth daily. 12/13/19 24 aborted amLODIPine (NORVASC) 5 MG tablet Take 1 tablet by mouth daily. active hydroCHLOROthiazide (HYDRODIURIL) 50 MG tablet Take 1 tablet by mouth daily. active lisinopril-hydroCHLOROth iazide (PRINZIDE,ZESTORETIC) 20-12.5 MG per tablet act carmel metoPROLOL SUCCINATE (TOPROL-XL) 25 MG 24 hr tablet TAKE 0.5 TAB ORALLY ONCE A DAY 90 DAYS active montelukast (SINGULAIR) 10 MG tablet TAKE 1 TABLET BY MOUTH EVERY DAY BEFORE DINNER active fkmtymabdgfv-mmiz-eshuol ls-folic acid (CENTRUM) chewable tablet Chew 1 tablet daily. active Problems Problem Status Onset Date Problem Type Date of Resoluti on Source Other chest pain active 2023-08-03 ProblemAct [facility] Acute on chronic diastolic (congestive) heart failure active 2023-12-09 ProblemAct [facility] GERD (gastroesophageal reflu x disease) active 2018-12-01 ProblemAct [facility] Colon polyp active 2018-12-01 ProblemAct [facility] History of kidney stones active 2018-12-01 ProblemAct [facility] Intracerebral hemorrhage, nontraumatic active 2018-12-01 ProblemAct [facility] Sensorineural hearing loss (SNHL) of both ears active 2022-08-21 ProblemAct [facility] Deviated nasal septum active 2024-08-07 ProblemAct [facility] Sarcoidosis of lung active 2024-08-03 ProblemAct [facility] Anxiety active 2018-12-01 ProblemAct [facility] RBBB active 2023-08-03 ProblemAct [facility] Cyst of right kidney active 2018-12-01 ProblemAct [facility] Hypertension active 2024-07-21 ProblemAct [facility] Hypercholesterolemia active 2025-01-03 ProblemAct [facility] History of BPH active 2018-12-[address] [facility] Hyperlipidemia active 2017-08-[address] [facility] Right inguinal hernia active 2024-07-21 ProblemAct [facility] Syncope active 2025-01-03 ProblemAct [facility] Mass of neck active 2024-11-16 ProblemAct [facility] Allergic rhinitis active 2018-12-01 ProblemAct [facility] Generalized enlarged lymph nodes active 2022-08-21 ProblemAct [facility] Immunizations Vaccine Date Source Lot Number Status Influenza Virus Trivalent Sp lit Vaccine (MDV) IM 08/24/2022 [facility] [id number] completed Td, Unspecified 12/15/1999 [facility] 0 completed Encounters Encounter Type Encounter Reason Primary Diagnosis Location Date Ambulatory Allergic Rhinitis Allergic Rhinitis [facility] 03/12/2025 Ambulatory Sore Throat Sore Throat [place] [facility] 01/09/2025 Ambulatory Chronic systolic (congestive) heart failure Chronic systolic (congestive) heart failure [place] [facility] 11/21/2024 Ambulatory [place] [facility] 09/20/2024 Ambulatory Chronic systolic (congestive) heart failure Chronic systolic (congestive) heart failure [place] [facility] 08/29/2024 Ambulatory [place] [facility] 08/09/2024 Ambulatory Sarcoidosis of lung Sarcoidosis of lung [facility] [place] 08/03/2024 Ambulatory Headache, unspecified Headache, unspecified [place] [facility] 03/22/2024 Ambulatory [place] [facility] 03/16/2024 Ambulatory [place] [facility] 03/16/2024 Ambulatory [place] [facility] 03/16/2024 Ambulatory Chronic systolic (congestive) heart failure Chronic systolic (congestive) heart failure [place] [facility] 03/16/2024 Ambulatory Chronic systolic (congestive) heart failure Chronic systolic (congestive) heart failure [place] [facility] 03/07/2024 Ambulatory Chronic systolic (congestive) heart failure Chronic systolic (congestive) heart failure [place] [facility] 02/22/2024 Ambulatory Cardiomyopathy, unspecified Cardiomyopathy, unspecified [facility] 01/10/2024 Ambulatory Cardiomyopathy, unspecified Cardiomyopathy, unspecified [facility] 01/10/2024 Ambulatory Acute on chronic diastolic (congestive) heart failure Acute on chronic diastolic (congestive) heart failure [facility] 12/09/2023 Ambulatory [facility] 10/05/2023 Ambulatory [facility] 10/05/2023 Ambulatory [facility] 10/05/2023 Care Team Organization Name Specialty Phone Email Start Date End [facility] 04/10/2025 [facility] 10/05/2023 04/10/2025 [facility] 10/05/20232024 [facility] LUISANA KILLIAN Primary [facility] 10/05/20232022
--- OUTSIDE RECORDS SUMMARY | 2025-05-24 13:58 | XMS_ITS | Patient Health Record ---
Author Organization [facility] Address [address] [place] [address] Care Team Providers Care Systems Management Consultant Name Role Phone Dc Viramontes MD Primary Care Provider Tom Robles Jr Unavailable [phone] Allergies No Known Allergies Results Component Value Reference Range Notes Complete Blood Count Auto Di ff Reviewed date:09/14/2024 09:25:25 AM Interpretation: Performing Lab:[facility], [address] [place] [phone] Notes/Report: White Blood Count 7.3 4.8-10.8 X10*3/uL [...] Panel Reviewed date:09/14/2024 09:24:27 AM Interpretation: Performing Lab:[address] [phone] Notes/Report: Bilirubin Total 0.4 0.0-1.0 mg/dL Bilirubin Direct 0.1 0.0-0.5 mg/dL Aspartate Amino Transferase 20 5-37 U/L Alanine Aminotransferase 30 0-40 U/L Total Protein 6.9 6.5-8.0 g/dL Albumin Level 4.2 3.5-5.0 g/dL Alkaline Phosphatase 88 39-117 U/L Blood Urea Nitrogen Reviewed date:09/14/2024 09:24:50 AM Interpretation: Performing Lab:[address] [phone] Notes/Report: Blood Urea Nitrogen 32 9-16 mg/dL Creatinine Reviewed date:09/14/2024 09:24:40 AM Interpretation: Performing Lab:[address] [phone] Notes/Report: Creatinine 1.42 0.5-1.4 mg/dL Estimated Glomerular Filt Rate 48 Chronic Kidney Disease: Estimated GFR < 60 mL/min/1.73m2 Severe Kidney Disease: Estimated GFR < 15 mL/min/1.73m2 Lipase Reviewed date:09/14/2024 09:24:33 AM Interpretation: Performing Lab:[address] [phone] Notes/Report: Lipase 28 8-78 U/L Reason For Referral No Information Medications Medication SIG (Take, Route, Frequency, Duration) Notes Start Date End Date Status Eliquis 5 MG as directed Orally Active Gabapentin 300 MG 1 capsule Orally Onc e a day Active Tamsulosin HCl 0.4 MG 1 capsule Orally O nce a day for 90 days Unknown Atorvastatin Calcium 40 MG 1 tablet Oral ly Once a day Unknown Sertraline HCl 50 MG Oral for 90 Unknown Ondansetron HCl 8 MG Oral for 5 Unknown Omeprazole 20 MG 1 capsule 1/2 to 1 h our before morning meal Orally Once a day for 30 days 02/19/2025 Unknown Triamcinolone Acetonide 0.1 % External for 20 Unknown Finasteride 5 MG TAKE 1 TABLET BY JAMEL EVERY DAY Oral for 90 Unknown Farxiga 5 MG 1 tablet Orally Once a day for 30 day(s) 12/27/2023 Unknown Montelukast Sodium 10 MG Oral for 90 Unknown Entresto 97-103 MG Oral for 90 Days Unknown Omeprazole 40 MG 1 capsule 30 minutes before morning meal Orally Once a day for 90 days Unknown Carvedilol 3.125 MG TAKE 1 TABLET BY JAMEL TWICE A DAY WITH MEALS Oral Twice a day for 90 days Unknown Farxiga 10 MG Oral for 90 Days Unknown Spironolactone 25 MG 1 tablet Orally for 30 day(s) 02/19/2025 Unknown Immunizations Vaccine Route Administration Date Status Comme nts Influenza Unknown 07/17/2020 Administered Influenza Unknown 09/03/2021 Administered Influenza Unknown 08/03/2023 Administered Influenza Unknown 08/28/2024 Administered Influenza Unknown 06/27/2024 Administered Social History Tobacco Use: Social History Observation Description Date Details (start date - stop date) Never Smoker NA - NA Tobacco Use/Smoking Question Answer Notes Patient is [...] Never (0 point) Points 3 Interpretation Negative Problems Problem Type SNOMED Code ICD Code Onset Dates Problem Status W/U Status Risk Notes Problem Colon cancer screening (Z12.11) Active confirmed Problem 431106070 Abdominal bloati ng (R14.0) Active confirmed Problem 221690480 Generalized abdominal pain (R10.84) Active confirmed Problem 404143848 Gastroesophageal reflux disease without esophagitis (K21.9) Active confirmed Problem 44625491 Constipation, unspecified constipation type (K59.00) Active confirmed Vital Signs Temperature 98.6 degrees Fahrenheit 02/19/2025 Blood pressure diastolic 01 mm Hg 02/19/2025 Height 66 in 02/19/2025 Blood pressure systolic 001 mm Hg 02/19/2025 Weight 161.4 lbs 02/19/2025 BMI 26.05 kg/m2 02/19/2025 Encounters Encounter Location Date Provider Diagnosis [facility] [address] [place] [address] [place] [phone] 09/13/2024 Tom Dexter Jr Generalized abdominal pain R10.84 ; Abdominal bloating R14.0 and Gastroesophageal reflux disease without esophagitis K21.9 [facility] [address] [place] [phone] 02/19/2025 Tom Dexter Jr Gastroesophageal reflux disease without esophagitis K21.9 ; Abdominal bloating R14.0 and Colon cancer screening Z12.11 [facility] [address] [place] [phone] 05/22/2025 Tom Dexter Jr [facility] [address] [place] [phone] 07/31/2024 Tom Dexter Jr [facility] [address] [place] [phone] 09/11/2024 Tom Dexter Jr [facility] [address] [place] [phone] 09/14/2024 Tom Dexter Jr [facility] [address] [place] [phone] 09/27/2024 Tom Dexter Jr [facility] [address] [place] [phone] 12/25/2024 Tom Dexter Jr [facility] [address] [place] [phone] 05/17/2025 Tom Dexter Jr [facility] [address] [place] [phone] 05/17/2025 Tom Dexter Assessments Encounter Date Diagnosis (ICD Code) Assessment Notes Treatment Notes Treatment Clinical Notes Section Notes 09/13/2024 Abdominal bloating (ICD-10 - R14.0) We discussed his symptoms today. He'll have further evaluation with laboratory studies and CT scanning of the abdomen and pelvis. He will continue omeprazole for his reflux. We discussed diet, lifestyle modifications, and weight management regarding the treatment of reflux today. He will be due for colonoscopy in November and this will be arranged pending the results of his CT scan and laboratory studies. We discussed that colonoscopy is optional based on his age. 09/13/2024 Generalized abdominal pain (ICD-10 - R10.84) We discussed his symptoms today. He'll have further evaluation with laboratory studies and CT scanning of the abdomen and pelvis. He will continue omeprazole for his reflux. We discussed diet, lifestyle modifications, and weight management regarding the treatment of reflux today. He will be due for colonoscopy in November and this will be arranged pending the results of his CT scan and laboratory studies. We discussed that colonoscopy is optional based on his age. 02/19/2025 Abdominal bloating (ICD-10 - R14.0) Reflux symptoms are doing well. We discussed diet, lifestyle modifications, and weight management regarding the treatment of reflux. He will continue omeprazole and we will try a lower dose to see if this helps his symptoms. For his bloating we have recommended simethicone 125 mg before meals and at night. He is due for colorectal cancer screening. We discussed risks and benefits of the procedure today. He understands these and agrees to proceed. 02/19/2025 Gastroesophageal reflux disease without esophagitis (ICD-10 - K21.9) Reflux symptoms are doing well. We discussed diet, lifestyle modifications, and weight management regarding the treatment of reflux. He will continue omeprazole and we will try a lower dose to see if this helps his symptoms. For his bloating we have recommended simethicone 125 mg before meals and at night. He is due for colorectal cancer screening. We discussed risks and benefits of the procedure today. He understands these and agrees to proceed. 09/13/2024 Gastroesophageal reflux disease without esophagitis (ICD-10 - K21.9) We discussed his symptoms today. He'll have further evaluation with laboratory studies and CT scanning of the abdomen and pelvis. He will continue omeprazole for his reflux. We discussed diet, lifestyle modifications, and weight management regarding the treatment of reflux today. He will be due for colonoscopy in November and this will be arranged pending the results of his CT scan and laboratory studies. We discussed that colonoscopy is optional based on his age. 02/19/2025 Colon cancer screening (ICD-10 - Z12.11) Reflux symptoms are doing well. We discussed diet, lifestyle modifications, and weight management regarding the treatment of reflux. He will continue omeprazole and we will try a lower dose to see if this helps his symptoms. For his bloating we have recommended simethicone 125 mg before meals and at night. He is due for colorectal cancer screening. We discussed risks and benefits of the procedure today. He understands these and agrees to proceed. Plan Of Treatment Pending Test Test Name Order Date BUN 09/13/2024 CREATININE 09/13/2024 LIVER PROFILE 09/13/2024 LIPASE 09/13/2024 CBC w/o DIFF 09/13/2024 CT ABD & PELVIS WITH CONTRAST 09/13/2024 Future Test Test Name Order Date COLONOSCOPY 02/19/2025 Next Appt Details Provider Name:Tom toledo , 06/19/2025 12:50:00 PM, [address] [place] [address] , [place], [place], [id number], Insurance Providers Payer Name Payer Address Payer Phone Subscriber Number Group Number Insured Name Patient Relationship to Insured Coverage Start Date Coverage End Date MEDICARE OF [place] [address] [place] [address] [id number] RAHEEM OBREGON Self - patient is the insured [employer] CLAIMS [address] [place] [address] [id number] RAHEEM OBREGON Self - patient is the insured Medical (General) History Medical History History ICD Code hypertension hyperlipidemia heart murmur sarcoidosis, seeing Dr. 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 pylori, treated, no Velasquez's esophagus Surgical History Surgery Date(Month/Year) colonoscopy 11/30, tubular adenomas x2, f carmel-year followup hernia repair
--- OUTSIDE RECORDS SUMMARY | 2025-05-24 13:58 | XMS_ITS | Encounter Summary ---
Author Organization [facility] Address [address] [place] [address] Care Team Providers Care Loan Originator Name Role Phone Dc Viramontes DO Primary Care Provider [phone] Reason for Visit * Reason Onset Date Comments Appt needed 05/22/2025 Encounter Details Date Type Department Care Team (Late st Contact Info) Description 05/22/2025 Telephone [facility] [address] [facility] [address] [place] [address] Artemio Yeung MD [address] [place] [address] [place] [address] Appt needed Social History Tobacco Use Types Packs/Day Years Used Date Smoking Tobacco: Never Smokeless Tobacco: Never Alcohol Use Standard Drinks/Week Comments Yes 0 (1 standard drink = 0.6 oz pur e alcohol) occassionally Sex and Gender Information Value Date Recorded Sex Assigned at Male 12/21/2024 8:00 AM EDT Legal Sex Male 2:52 AM EST Gender Identity Male 12/21/2024 8:00 AM EDT Sexual Orientation Straight 12/21/2024 8: 00 AM EDT documented as of this encounter Progress Notes * Carlie Martinez MA - 05/24/2025 11:00 AM EDT Latasha called back from Dr. Dexter office stating she is leaving on vacation next and has to have the clearance letter sent out prior to her leave. Latasha is asking if a clearance letter can be faxed to [phone]. Latasha can be reached [phone]. * Carlie Martinez MA - 05/22/2025 3:55 PM EDT Latasha from [facility] called regarding patient colonoscopy that has been scheduled on 06/19/25 stating thatpatient would need cardiac clearance prior to procedure. Patient was last seen in December 2024 however has an upcoming appointment in July. Latasha asked that a cardiac clearance letter be faxed to [phone]. Advised Latasha T/C encounters have been placed. * [place] - 05/22/2025 3:46 PM EDT Called patient to inform her that she would need to call the Office doing the colonoscopy to have them call our office to get the information for the procedure and get pal scheduled. * Madina Aguillon - 05/22/2025 11:04 AM EDT Patients Karen calling stating Pal has a colonoscopy scheduled for June 19. GI is needing patient to have clearance done before hand. Karen is wondering if patient can be seen before his colonoscopy for his clearance. Please call patient back [phone]. Thanks. documented in this encounter Plan of Treatment Upcoming Encounters Date Type Department Care Team (Late st Contact Info) Description 07/26/2025 10:10 AM EDT Office Visit [facility] [address] [place] [address] Shaq Marsh NP [address] [facility] [address] [place] [address] documented as of this encounter Visit Diagnoses Not on filedocumented in this encounter Care Teams Loan Originator Relationship Specialty Start Date End Date Dc Viramontes DO [address] [place] [phone] PCP - General Internal Medicine 06/19/09 documented as of this encounter
[2025-06-19 11:19] VITALS: BMI 25.3
[2025-06-19 11:35] VITALS: BP 128/71; PULSE 74; RESP 16; TEMP 36.9; O2SAT 97
[2025-06-19] MEDS: Lactated Ringers 1,000 ML 50 ML IVCONT (11:37)
--- NOTE | 2025-06-19 11:38 | HO.ANESPROP2 ---
Documented by User: Kamala Pereira NP 06/18/25 10:12 HPI - Anesthesia Eval Consult details Narrative: 80yo M for Colonoscopy Cardiac optimized. Follows [facility] for CHF. Nml cath 12/2024, nml echo. PAD s/p right fem/pop/PT thrombectomy and right BK pop-PT bypass with GSV by Dr. Medina on?03/18 due to critical limb ischemia Pulmonary sarcoid. Follows [facility] pulia. Not requiring steroids or tx. Stable CT per 02/2025 office visit with routine 6 month f/u Anesthesia Pre-Procedure Meds Is the patient on any of the following meds?: SGLT2 Inhib PMFSH Past Medical History Medical History (Updated 06/18/25 @ 09:59 by Kamala Pereira NP) CHF (congestive heart failure) GERD (gastroesophageal reflux disease) Pulmonary sarcoidosis Murmur HLD (hyperlipidemia) HTN (hypertension) Social History Social History Patient Tobacco Use Status: Never used Tobacco Use of substances other than those prescribed or required for medical reasons: No Advance Directives: No Advance Directives Information Provided: Yes Meds Allergies Allergy/AdvReac Type Severity Reaction Status Date / Time No Known Allergies Allergy Verified 06/18/25 08:16 Home Medications ?Medication ?Instructions ?Recorded ?Confirmed ?Last Taken ?Type atorvastatin 20 mg tablet 20 mg PO DAILY 06/18/25 06/18/25 Unknown History carvedilol 3.125 mg tablet 3.125 mg PO BID 06/18/25 06/18/25 Unknown History dapagliflozin propanediol 10 mg 10 mg PO DAILY 06/18/25 06/19/25 06/17/25 08:00 History tablet (Farxiga) finasteride 5 mg 06/18/25 Unknown History montelukast 10 mg 06/18/25 Unknown History omeprazole 40 mg capsule,delayed 40 mg PO QAM 06/18/25 06/18/25 Unknown History release ondansetron HCl 4 mg tablet 4 mg PO Q8H PRN nausea/vomiting 06/18/25 06/18/25 Unknown History sacubitril 97 mg-valsartan 103 mg 1 tab PO BID 06/18/25 06/18/25 Unknown History tablet (Entresto) sertraline 50 mg 06/18/25 Unknown History spironolactone 25 mg tablet 25 mg PO DAILY 06/18/25 06/18/25 Unknown History tamsulosin 0.4 mg capsule 0.4 mg PO BEDTIME 06/18/25 06/18/25 Unknown History triamcinolone acetonide 0.1 % appl topical BID PRN Itching 06/18/25 Unknown History topical cream apixaban 5 mg tablet (Eliquis) 5 mg PO BID 06/19/25 06/19/25 06/17/25 08:00 History Exam Pertinent Lab Results Pertinent Lab Results: Narrative Narrative: Cardiac Cath 12/2024 CONCLUSION: 1. Normal right heart pressures. 2. Low normal assumed Seth cardiac output. 3. Minor nonobstructive coronary atherosclerosis without significant obstructive disease. ECHO 12/2024 ? Left ventricle cavity size is normal. There is mild hypertrophy. Systolic function is normal with an ejection fraction of 55-60%. There are no regional LV wall motion abnormalities. There is Grade I (mild) diastolic dysfunction. ? Right ventricle cavity is normal. Right ventricular systolic function is normal. ? No hemodynamically significant valvular disease. ? Tricuspid regurgitation is inadequate for estimation of right ventricular systolic pressure. EKG 12/2024 Normal sinus rhythm Right bundle branch block Left anterior fascicular block Bifascicular block Voltage criteria for left ventricular hypertrophy Cannot rule out Septal infarct , age undetermined Abnormal ECG When compared with ECG of 30-NOV-2018 10:11, Right bundle branch block has replaced Incomplete right bundle branch block Confirmed by JOEL LOMAX ([id number]) on 12/11/2024 4:46:25 PM Cardiac PET Sarcoid Study 03/2024 Narrative ? ?This FDG PET cardiac sarcoidosis study found no evidence of an active myocardial inflammatory process that would be consistent with cardiac sarcoidosis. ? ?FDG uptake was seen in the nolberto-corinal, nolberto-hilar, nolberto-aortic and nolberto-tracheal lymph?nodes. ? ?Left ventricular function at rest is abnormal. Global function is mildly reduced. There is a single regional wall motion abnormality in the gated rest images. Resting ejection fraction is 49%. The left ventricular cavity size is normal. PFT 02/2025 INTERPRETATION: Spirometry is normal. Significant response to bronchodilator. Lung volumes are normal. The carbon monoxide diffusing capacity is above 100% predicted. The finding of bronchodilator response with normal spirometry and above 100% predicted DLCO is consistent with asthma. Since 12/16/2023, unchanged FEV1 (-5%), lower FVC (-11%, -16% pred), unchanged TLC (-2%), DLCO [Unc] (+8%). Chest CT 11/2024 IMPRESSION: Multiple enlarged partially calcified mediastinal hilar lymph nodes and presence of scattered clusters of micronodules in the bilateral lungs (most predominant in the right upper and middle lobe distribution), compatible with stage II pulmonary sarcoidosis. No evidence of fibrotic lung disease. Assessment and Plan Assessment Anesthesia Assessment: Chart Reviewed Documented by User: Eleanor Baron DO 06/19/25 11:40 HPI - Anesthesia Eval Anesthesia Pre-Procedure Meds Is the patient on any of the following meds?: SGLT2 Inhib PMFSH Past Medical History Medical History (Updated 06/18/25 @ 09:59 by Kamala Pereira NP) CHF (congestive heart failure) GERD (gastroesophageal reflux disease) Pulmonary sarcoidosis Murmur HLD (hyperlipidemia) HTN (hypertension) Family History Family history of problems with anesthesia: No Surgical History History of Problems with Anesthesia: No Social History Social History Patient Tobacco Use Status: Never used Tobacco Use of substances other than those prescribed or required for medical reasons: No Advance Directives: No Advance Directives Information Provided: Yes Meds Allergies Allergy/AdvReac Type Severity Reaction Status Date / Time No Known Allergies Allergy Verified 06/18/25 08:16 Home Medications ?Medication ?Instructions ?Recorded ?Confirmed ?Last Taken ?Type atorvastatin 20 mg tablet 20 mg PO DAILY 06/18/25 06/18/25 Unknown History carvedilol 3.125 mg tablet 3.125 mg PO BID 06/18/25 06/18/25 Unknown History dapagliflozin propanediol 10 mg 10 mg PO DAILY 06/18/25 06/19/25 06/17/25 08:00 History tablet (Farxiga) finasteride 5 mg 06/18/25 Unknown History montelukast 10 mg 06/18/25 Unknown History omeprazole 40 mg capsule,delayed 40 mg PO QAM 06/18/25 06/18/25 Unknown History release ondansetron HCl 4 mg tablet 4 mg PO Q8H PRN nausea/vomiting 06/18/25 06/18/25 Unknown History sacubitril 97 mg-valsartan 103 mg 1 tab PO BID 06/18/25 06/18/25 Unknown History tablet (Entresto) sertraline 50 mg 06/18/25 Unknown History spironolactone 25 mg tablet 25 mg PO DAILY 06/18/25 06/18/25 Unknown History tamsulosin 0.4 mg capsule 0.4 mg PO BEDTIME 06/18/25 06/18/25 Unknown History triamcinolone acetonide 0.1 % appl topical BID PRN Itching 06/18/25 Unknown History topical cream apixaban 5 mg tablet (Eliquis) 5 mg PO BID 06/19/25 06/19/25 06/17/25 08:00 History Exam Exam Date and Time: 06/19/25 1138 Height,Weight and Vital Signs: Height 5 ft 6 in Weight 71.2 kg Vital Signs Temperature 98.4 F 06/19/25 11:35 Pulse Rate 74 06/19/25 11:35 Respiratory Rate 16 06/19/25 11:35 Blood Pressure 128/71 06/19/25 11:35 Pulse Oximetry 97 06/19/25 11:35 Oxygen Delivery Method Room Air 06/19/25 11:35 Temperature 98.4 F 06/19/25 11:35 Pulse Rate 74 06/19/25 11:35 Respiratory Rate 16 06/19/25 11:35 Blood Pressure 128/71 06/19/25 11:35 Pulse Oximetry 97 06/19/25 11:35 Oxygen Delivery Method Room Air 06/19/25 11:35 Airway Mallampati Class: II TM Dist: >3cm Neck ROM: Full Loose/Missing/Broken Teeth: No (patient denies any loose or broken teeth) Heart: S1S2 Lungs: CTAB Assessment and Plan Assessment Anesthesia Assessment: Anesthesia Plan Discussed and Chart Reviewed Final Anesthetic Review Family History of Problems with Anesthesia: No History of Problems with Anesthesia: No NPO: Yes ASA Class: III Final Preanesthetic Review: No Changes in Pt Med Stat, Meds/Allgs Chart Reviewed, Consent Obtained/Reviewed and Anes Risks/Benef Reviewed Patient Risk: Intermediate Procedure Risk: Low Anesthetic Plan Anesthetic Plan: MAC: and Agree w/ Assess. and Plan Disposition: Standard PACU
--- NOTE | 2025-06-19 11:56 | MHC.SHP ---
Pre-Procedural Eval Section A - 24 Hr Update-Section A only Date of Service: 06/19/25 Section B - Complete if H&P > 30 days Chief Complaint: screening Details of Present Illness: see H&P no changes Relevant Family History (Specify if Yes): No Relevant Social History: None Present Medications: see Short Stay Collaborative assessment History of Previous Operations: No relevant previous surgery Allergies: Allergies Allergy/AdvReac Type Severity Reaction Status Date / Time No Known Allergies Allergy Verified 06/18/25 08:16 Review of Systems Sugical H&P ROS: Negative: Constitution, Cardiovascular, Respiratory, Neurological, Psychiatric, Hem-Onc, Allergic/Immunologic, Gastrointestinal, Genitourinary, Musculoskeletal, Integumentary, Endocrine and Eyes/Ears/Nose/Throat Exam Surgical H&P Exam: Normal: HEENT, Normal: Heart, Normal: Lungs, Normal: Extremities, Normal: Abdomen, Normal: Skin and Normal: Neurological Plan Diagnosis/Plan: Unchanged I have reviewed the history and physical and performed a pertinent physical examination on my patient. No changes have occurred unless specified. Time Spent With Patient Time: Total time managing care of this patient today ____ minutes.
[2025-06-19 12:40] VITALS: BP 99/58; PULSE 75; RESP 16; TEMP 36.6; O2SAT 95
[2025-06-19 12:55] VITALS: BP 115/64; PULSE 77; RESP 16; TEMP 36.8; O2SAT 96
--- NOTE | 2025-06-19 13:21 | OP_ITS ---
DATE OF SERVICE: 06/19/2025 SURGEON: Tom Dexter MD INDICATIONS: Colon cancer screening and prior history of adenomatous colon polyps. PREOPERATIVE DIAGNOSIS: POSTOPERATIVE DIAGNOSIS: PROCEDURE PERFORMED: Colonoscopy to the terminal ileum with snare polypectomy. ESTIMATED BLOOD LOSS: COMPLICATIONS: ANESTHESIA: Monitored anesthesia care. ASSISTANTS: SPECIMENS: DESCRIPTION OF PROCEDURE: A history and physical was performed. The risks and benefits of the procedure were explained to the patient, and informed consent was obtained. The patient was placed in the left lateral decubitus position. A digital rectal exam was performed and was found to be normal. The Olympus pediatric video colonoscope was introduced into the rectum and advanced to the cecum. The cecum was identified by transillumination, palpation, and identification of ileocecal valve. Examination was performed. The scope was removed. He tolerated the procedure well and was returned to the recovery area in stable condition. FINDINGS: The terminal ileum was examined and appeared normal. The visualized colonic mucosa was normal. The quality of the prep was good. A single polyp measuring less than 10 mm was identified in the right colon and removed with a cold snare. The polyp was recovered via suction. No other polyps were identified. There was mild sigmoid diverticulosis. Retroflexed examination showed small internal hemorrhoids. IMPRESSION: Colon polyp. RECOMMENDATION: Follow up the biopsy results. MD ALFA Nicholas/PADMINI / [id number]
== END 2025-06-19 13:29 | disposition home or self-care (01) ==
PROVIDERS: PCP Internal Medicine; Visit Provider Internal Medicine Gastroenterology
PROC: 0DJD8ZZ Inspection of Lower Intestinal Tract, Via Natural or Artificial Opening Endoscopic (ICD-10-PCS; CPT 45378; principal; 2025-06-19 12:00)
DX: Z12.11 Encounter for screening for malignant neoplasm of colon (principal); D12.6 Benign neoplasm of colon, unspecified; K57.30 Diverticulosis of large intestine without perforation or abscess without bleeding; K64.8 Other hemorrhoids; Z86.0101 Personal history of adenomatous and serrated colon polyps; I10 Essential (primary) hypertension; E78.5 Hyperlipidemia, unspecified; K21.9 Gastro-esophageal reflux disease without esophagitis; Z79.899 Other long term (current) drug therapy; Z79.02 Long term (current) use of antithrombotics/antiplatelets
CPT/HCPCS: 45385; 88305